=== PATIENT | female | born 1985 | race Two or more races ===

== ENCOUNTER 2024-09-04 09:38 | Emergency (ER) | payer OTHER ==
[~2024-09-04] VITALS: Ht 154.9 cm; Wt 67.1 kg
[2024-09-04] MEDS ORDERED: LIDOCAINE HCL 1% 10ML VIAL PERCUT ONE (11:30)
[2024-09-04] MEDS ORDERED: ACETAMINOPHEN 500 MG GEL..CAP PO ONE (11:30)
[2024-09-04] MEDS ORDERED: CEFTRIAXONE SODIUM 1,000 MG VIAL IM ONE (12:00)
== END 2024-09-04 12:22 | disposition home or self-care (01) ==
LOC: EDBD 09:41 → ER 09:41
DX: S61.211A Laceration without foreign body of left index finger without damage to nail, initial encounter (principal); W45.8XXA Other foreign body or object entering through skin, initial encounter; Y93.89 Activity, other specified; Y92.69 Other specified industrial and construction area as the place of occurrence of the external cause; Y99.8 Other external cause status